=== PATIENT | male | born 1955 | race Caucasian/White ===

== ENCOUNTER 2019-02-12 15:33 | Emergency (ER) | payer OTHER, SELFPAY ==
[2019-02-12 15:40] VITALS: BP 116/64; PULSE 60; RESP 18; TEMP 36.5; O2SAT 98
--- NOTE | 2019-02-12 15:55 | W.ED.GENAD ---
Discharge Plan Disposition Patient Disposition: HOME Condition: Stable Discharge Details Chief Complaint: Laceration Clinical Impression: Laceration of right upper extremity Primary Care Provider: Tim Arriaga ED Provider: Saji Franklin Home Meds and New Rx's Prescriptions: No Action ibuprofen [Advil] 200 mg Tablet 800 mg RF: 0 Discharge Instructions Instructions: Skin Adhesive Care (ED) Additional Instructions: check with your primary care office today or tomorrow to see if you have had a tetanus vaccine in the past 10 years, if not you should have a booster if redness spreads or you have yellow/white discharge or severe pain return to the emergency department for reevluation Medical Decision Making 63 yo male who denies any significant chronic medical problems and is not on blood thinners 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 Denies loc or other trauma. He has had pressure with pressure dressing since and came here for an eval. HE has a 0.5cm laceration to the distal posterior right arm without bleeding, has small amount of swelling without pulsaitle flow on palpation and not increasing in size, suspect hematoma. Placed skin adhesive and will d/c home, return precautions given. Offered tdap but he is going to check with his pcp's office and f/u with them tomorrow if he needs a booster. PT has no significant pain, sensation intact and wound is superficial and has full rom of all joints so doubt entities such as tendon or nerve injury Differential Diagnosis laceration, hematoma HPI General Mode of arrival: ambulatory. Date/Time Provider Initiated Documentation: 02/12/19 15:46. Limitations to Documentation: no limitations. Information obtained by: patient. History of Present Illness 63 year old M presents to the emergency department with the chief complaint of right arm laceration, described as moderate, Quality is described as aching, and is localized to the right and upper extremity. Patient reports no radiation. Patient started experiencing this day(s) (1) and it has been constant. No relieving factors improve symptom(s), No exacerbating factors reported . Patient notes no other symptoms.. Patient did receive the following treatments prior to arrival, none Related Data Home Medications Medication Instructions Recorded Confirmed ibuprofen [Advil] 800 mg 02/12/19 Allergies Allergy/AdvReac Type Severity Reaction Status Date / Time No Known Allergies Allergy Unverified 02/12/19 15:47 General Stated Complaint: Laceration ALLY: 3 Review of Systems Review of Systems All systems reviewed & are unremarkable except as noted in HPI and below Constitutional Denies chills, Denies fever(s) and Denies weakness Cardiovascular Denies chest pain and Denies dyspnea Respiratory Denies dyspnea Gastrointestinal Denies abdominal pain, Denies nausea and Denies vomiting Musculoskeletal Denies joint swelling Neurologic Denies weakness Exam Const General: no acute distress Orientation: alert HENMT Head: normal to inspection Ears: external ears normal General nose exam: external nose normal Mouth: moist mucous membranes Eyes General: appearance normal, both eyes and all related structures Neck Neck: normal visual inspection Resp Effort & Inspection: normal respiratory effort and able to speak in complete sentences Cardio Rate: regular rate Skin General skin exam: no rashes or lesions noted Neuro General: alert and oriented x3 Extrem General: full ROM Psych Mental Status: mental status grossly normal Course Vital Signs Temperature 36.5 C 02/12/19 15:40 Pulse 60 02/12/19 15:40 Respiratory Rate 18 02/12/19 15:40 Blood Pressure 116/64 02/12/19 15:40 Pulse Oximetry 98 02/12/19 15:40 Temperature 36.5 C 02/12/19 15:40 Temperature Source Temporal Artery Scan 02/12/19 15:40 Pulse 60 02/12/19 15:40 Respiratory Rate 18 02/12/19 15:40 Blood Pressure 116/64 02/12/19 15:40 Blood Pressure Position Supine 02/12/19 15:40 Pulse Oximetry 98 02/12/19 15:40 Oxygen Delivery Method Room Air 02/12/19 15:40 Oxygen Flow Rate 0 02/12/19 15:40 Pain Level 0 02/12/19 15:40 Procedures Laceration Laceration 1: Site: upper extremity Side (If applicable): right Size (cm): 0.5 Description: linear Depth: simple, single layer Pre-repair: irrigated extensively Skin layer closed with: other (skin adhesive)
--- NOTE | 2019-02-12 16:00 | ED.GENADUL_ITS ---
Discharge Plan Disposition Patient Disposition: HOME Condition: Stable Discharge Details Chief Complaint: Laceration Clinical Impression: Laceration of right upper extremity Primary Care Provider: Tim Arriaga ED Provider: Saji Franklin Home Meds and New Rx's Prescriptions: No Action ibuprofen [Advil] 200 mg Tablet 800 mg RF: 0 Discharge Instructions Instructions: Skin Adhesive Care (ED) Additional Instructions: check with your primary care office today or tomorrow to see if you have had a tetanus vaccine in the past 10 years, if not you should have a booster if redness spreads or you have yellow/white discharge or severe pain return to the emergency department for reevluation Medical Decision Making 63 yo male who denies any significant chronic medical problems and is not on blood thinners 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 Denies loc or other trauma. He has had pressure with pressure dressing since and came here for an eval. HE has a 0.5cm laceration to the distal posterior right arm without bleeding, has small amount of swelling without pulsaitle flow on palpation and not increasing in size, suspect hematoma. Placed skin adhesive and will d/c home, return precautions given. Offered tdap but he is going to check with his pcp's office and f/u with them tomorrow if he needs a booster. PT has no significant pain, sensation intact and wound is superficial and has full rom of all joints so doubt entities such as tendon or nerve injury Differential Diagnosis laceration, hematoma HPI General Mode of arrival: ambulatory . Date/Time Provider Initiated Documentation: 02/12/19 15:46 . Limitations to Documentation: no limitations . Information obtained by: patient . History of Present Illness 63 year old M presents to the emergency department with the chief complaint of right arm lac eration, described as moderate, Quality is described as aching, and is localized to the right and upper extremity. Patient reports no radiation. Patient started experiencing this day(s) (1) and it has been constant. No relieving factors improve symptom(s), No exacerbating factors reported . Patient notes no other symptoms.. Patient did receive the following treatments prior to arrival, none Related Data Home Medications Medication Instructions Recorded Confirmed ibuprofen [Advil] 800 mg 02/12/19 Allergies Allergy/AdvReac Type Severity Reaction Status Date / Time No Known Allergies Allergy Unverified 02/12/19 15:47 General Stated Complaint: Laceration ALLY: 3 Review of Systems Review of Systems All systems reviewed & are unremarkable except as noted in HPI and below Constitutional Denies chills, Denies fever(s) and Denies weakness Cardiovascular Denies chest pain and Denies dyspnea Respiratory Denies dyspnea Gastrointestinal Denies abdominal pain, Denies nausea and Denies vomiting Musculoskeletal Denies joint swelling Neurologic Denies weakness Exam Const General: no acute distress Orientation: alert HENMT Head: normal to inspection Ears: external ears normal General nose exam: external nose normal Mouth: moist mucous membranes Eyes General: appearance normal, both eyes and all related structures Neck Neck: normal visual inspection Resp Effort & Inspection: normal respiratory effort and able to speak in complete sentences Cardio Rate: regular rate Skin General skin exam: no rashes or lesions noted Neuro General: alert and oriented x3 Extrem General: full ROM Psych Mental Status: mental status grossly normal Course Vital Signs Temperature 36.5 C 02/12/19 15:40 Pulse 60 02/12/19 15:40 Respiratory Rate 18 02/12/19 15:40 Blood Pressure 116/64 02/12/19 15:40 Pulse Oximetry 98 02/12/19 15:40 Temperature 36.5 C 02/12/19 15:40 Temperature Source Temporal Artery Scan 02/12/19 15:40 Pulse 60 02/12/19 15:40 Respiratory Rate 18 02/12/19 15:40 Blood Pressure 116/64 02/12/19 15:40 Blood Pressure Position Supine 02/12/19 15:40 Pulse Oximetry 98 02/12/19 15:40 Oxygen Delivery Method Room Air 02/12/19 15:40 Oxygen Flow Rate 0 02/12/19 15:40 Pain Level 0 02/12/19 15:40 Procedures Laceration Laceration 1: Site: upper extremity Side (If applicable): right Size (cm): 0.5 Description: linear Depth: simple, single layer Pre-repair: irrigated extensively Skin layer closed with: other (skin adhesive)
== END 2019-02-12 17:53 | disposition home or self-care (01) ==
PROVIDERS: Emergency Provider Emergency Medicine; PCP Family Medicine
DX: S51.811A Laceration without foreign body of right forearm, initial encounter (principal); W26.0XXA Contact with knife, initial encounter
CPT/HCPCS: 12001